=== PATIENT | male | born 1980 | race Caucasian/White ===

== ENCOUNTER 2017-06-16 08:48 | Day surgery (SDC) | payer MEDICARE ==
--- NOTE | ~2017-06-16 | OP ---
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 PROCEDURE: 1. Formalization of amputation at the DIP joint of the left hand long finger. 2. Debridement and closure of left hand fifth finger. SURGEON: Jhony Mitchell MD ANESTHESIA: General. INTRAOPERATIVE COMPLICATIONS: None. SUMMARY OF PATHOLOGIC FINDINGS: As noted above, the patient sustained substantial trauma requiring the above surgery. OPERATIVE SUMMARY IN DETAIL: After obtaining the appropriate preoperative orthopedic surgery consent as well as anesthetic consultation, evaluation and clearance, the patient was brought to the operating room and placed on the operating table in supine position. After general laryngeal mask airway was administered, tourniquet was placed about the proximal aspect of the left upper extremity. Left upper extremity was then prepped and draped in routine sterile fashion. The arm was elevated and exsanguinated, tourniquet was inflated to 250 mmHg. Copious irrigation was then followed by removal of the debris of the long finger and slightly trimming back the distal portion of the phalanx creating a viable usable flap that was then turned upward. The nail bed was ablated and the very distal most aspect of the DIP joint was maintained and simple 4-0 Prolene closure was then utilized for formalization of the amputation. Fifth finger required simple superficial debridement with simple 4-0 Prolene closure. Having completed this, sterile dressings were applied. Tourniquet was deflated. The patient was awakened, taken to recovery room in stable condition. All final needle and sponge counts were correct. TRANSINT:[id number] Voice Confirmation ID: [id number] DOCUMENT ID: [id number] PAULA GRIFFIN, JHONY HUITRON at 1225 CC: [id number] DICTATION DATE: 07/20/17 0947 JOURNEYMAN MECHANIC: 07/20/17 1114 [facility] [place] 06/16/17 [place] [address]
[2017-06-16 11:13] LABS: BASOPHILS 0.3 % (0-2); EOSINOPHILS 2.6 % (0-7); HEMATOCRIT 39.9 % (42.0-54.0); HEMOGLOBIN 13.5 g/dL (13.5-17.5); IMMATURE GRANULOCYTES 0.3 % (0-5); MCH 29.5 pg (26.0-34.0); MCHC 33.8 g/dL (31.0-37.0); MCV 87.3 fL (80.0-100.0); MEAN PLATELET VOLUME 10.4 fL (7.4-10.4); MONOCYTES 8.3 % (2-11); NEUTROPHILS 57.5 % (40-80); PLATELET COUNT 216 10x3/uL (130-400); RBC 4.57 10x6/uL (4.20-6.10); RDW 13.3 % (11.5-14.5); WBC 7.4 10x3/uL (4.8-10.8)
[2017-06-16 11:17] LABS: APTT 31.1 SECONDS (22.8-39.4); INR 0.97 (0.85-1.17); PROTIME 12.5 SECONDS (11.6-15.0)
[2017-06-16 11:21] LABS: ALBUMIN 4.2 g/dL (3.4-5.0); ALKALINE PHOSPHATASE 66 U/L (46-116); ALT (SGPT) 23 U/L (10-68); BILIRUBIN - TOTAL 0.37 mg/dL (0.2-1.3); CALC OSMOLALITY 277 mosm/kg (275-300); CALCIUM 8.7 mg/dL (8.5-10.1); CARBON DIOXIDE 30.3 mmol/L (21.0-32.0); CHLORIDE - SERUM 101 mmol/L (98-107); CREATININE - SERUM 0.8 mg/dL (0.6-1.3); GLUCOSE 100 mg/dL (74-106); POTASSIUM - SERUM 3.5 mmol/L (3.5-5.1); SODIUM 139 mmol/L (136-145); UREA NITROGEN 13 mg/dL (7-18); eGFR NON AFRICAN AMERICAN > 90 mL/min (90-120)
[2017-06-16] MEDS ORDERED: HYDROCODONE-APA1 TAB PO (13:03)
[2017-06-16] MEDS ORDERED: BACTRIM DS TABL1 TAB PO (13:03)
== END 2017-06-16 15:10 | disposition home or self-care (01) ==
LOC: D.OPS 08:48 → D.ER 08:48 → EDSTATUS 11:00 → D.OPS 15:10
PROVIDERS: Emergency Medicine
DX: S68.125A Partial traumatic metacarpophalangeal amputation of left ring finger, initial encounter (principal); S61.217A Laceration without foreign body of left little finger without damage to nail, initial encounter; W31.89XA Contact with other specified machinery, initial encounter; I10 Essential (primary) hypertension; Z01.812 Encounter for preprocedural laboratory examination

== ENCOUNTER 2017-10-11 08:45 | Emergency (ER) | payer MEDICARE ==
[~2017-10-11] VITALS: Ht 180.3 cm; Wt 84.1 kg
[~2017-10-11 08:45] MED LIST: BACTRIM DS TABL1 TAB PO; HYDROCODONE-APA1 TAB PO
[2017-10-11 08:50] VITALS: Ht 180.3 cm; Wt 84.1 kg
[2017-10-11] MEDS ORDERED: BACTRIM DS TABL1 TAB PO (09:22)
[2017-10-11 09:34] VITALS: BP 146/90
[2017-10-15 04:25] VITALS: Ht 180.3 cm; Wt 84.1 kg
== END 2017-10-11 09:37 | disposition home or self-care (01) ==
LOC: D.ER 08:45
DX: L03.113 Cellulitis of right upper limb (principal); F17.200 Nicotine dependence, unspecified, uncomplicated

== ENCOUNTER 2017-10-15 00:56 | Inpatient (IN) | payer MEDICARE ==
[~2017-10-15] VITALS: Ht 180.3 cm; Wt 83.3 kg
[2017-10-15] VITALS (7 sets, daily range): BP systolic 151–197; BP diastolic 92–134; Ht 180.3 cm; Wt 83.3 kg
--- NOTE | ~2017-10-15 | MORECARE ---
CASE MANAGEMENT DISCHARGE SUMMARY PATIENT: LEONARDA WELLS UNIT: [id number] ADM DATE: 10/15/17 AGE: 37 : [birth year] SEX: M ROOM/BED: D.2132 AUTHOR: MARLENA, ALIGNMENT SPECIALIST PHYSICIAN: REFERRING PHYSICIAN: TOMY LESLIE MD DATE OF SERVICE: 10/15/17 Discharge Plan Patient Name: LEONARDA WELLS Facility: [facility]:[place] : 1980 Planned Disposition: Home Anticipated Discharge Date: 10/18/17 Discharge Date: Expected LOS: 3 Initial Reviewer: [email or web address] Initial Review Date: 10/18/2017 Generated: 10/18/17 6:14 pm Comments DCP- Discharge Planning Updated by [email or web address]: Omar Vasquez on 10/18/17 4:[address] Patient Name: LEONARDA WELLS Admission Status: ER Accout number: [id number] Admission Date: 10-15-2017 : 1980 Admission Diagnosis:CELLULITIS OF RIGHT UPPER LIMB Attending: TOMY LESLIE Current LOS: 3 Anticipated DC Date: 10-18-2017 Planned Disposition: Home Primary Insurance: [facility] [employer] Discharge Planning Comments: CM RECEIVED DISCHARGE ORDER, MET WITH PT IN ROOM TO DISCUSS DISCHARGE PLANNING AND NEEDS. PT REPORTS LIVING AT HOME INDEPENDENTLY WITH HIS SISTER. PT HAS NO MEDICAL EQUIPMENT AND NO OUTSIDE SERVICES ASSISTING IN THE HOME. CM DISCUSSED AVAILABILITY OF HOME HEALTH, REHAB SERVICES AND MEDICAL EQUIPMENT. PT DENIES DISCHARGE NEEDS, REPORTS HIS SISTER WILL PICK HIM UP FOR DISCHARGE HOME. IMPORTANT MESSAGE FROM MEDICARE PROVIDED AND EXPLAINED. Cager Operator: Omar Vasquez DCPIA - Discharge Planning Initial Assessment Updated by [email or web address]: Omar Vasquez on 10/18/17 5:08 pm * Is the patient Alert and Oriented? Yes * How many steps to enterexit or inside your home? * PCP DR. VEGA * Pharmacy [address] * Preadmission Environment Home with Family * ADLs Independent * Equipment None * Other Equipment NO MEDICAL EQUIPMENT PROVIDER PREFERENCE * List name and contact numbers for known caregivers / representatives who currently or will assist patient after discharge: BALDOMERO CALLAHAN, SISTER, * Verbal permission to speak to the caregivers and representatives has been obtained from the patient. N/A * Community resources currently utilized None * Please name any agencies selected above. NONE * Additional services required to return to the preadmission environment? No * Can the patient safely return to the preadmission environment? Yes * Has this patient been hospitalized within the prior 30 days at any hospital? No Coverage Notice Reviewer: [id number] - Omar Vasquez Notice Issued Date-Time: 10/18/2017 12:25 Notice Type: IM Discharge Notice Notice Delivered To: Patient Relationship to Patient: Fisher Troll Line Name: Delivery Method: HAND - Hand Delivered Nicole Days: Prior Verbal Notification: Recipient Understood Notice: Yes Recipient Signature: Yes Med Rec Note Co-signed by Attending: Coverage Notice Comment: Patient Name: LEONARDA WELLS Page [id number] All edits/amendments must be made on the electronic document DICTATION DATE: 10/18/171713 GLASS BULB SILVERER: 10/18/171713 RPT#: [id number] DC DATE: STATUS: ADM IN [facility] [address] [place] [address] END OF REPORT
--- NOTE | ~2017-10-15 | OP ---
PATIENT NAME: LEONARDA CARREON MEDICAL RECORD: [id number] :[birth year] LOCATION:D. D.2132 ADMISSION DATE:10/15/17 SURGEON: MIRTA SCANLON, DATE OF OPERATION: 10/15/2017 PROCEDURE PERFORMED: Right hand incision and debridement. PREOPERATIVE DIAGNOSES: Right hand abscess and compartment syndrome. POSTOPERATIVE DIAGNOSES: Right hand abscess and compartment syndrome. 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 He was put on oral antibiotics due to the redness and think it may have been a cellulitis. He then returned today with it worsening and more severe and even had pain with any movement of his thumb. He has been admitted and had an MRI done of his right hand with and without contrast, which showed a 2.9 cm in diameter collection of what appeared to be fluid or purulence in the thenar eminence of his hand just distal to his first metacarpal, mostly on the palmar surface but did extend dorsally. His hand was on exam extremely swollen. He did have pain out of proportion with passive stretch of his thumb. He had decreased sensation in his thumb and index finger. Upon these findings clinically, he was diagnosed with compartment syndrome and taken back to the operating room. He was informed of the risks and benefits of procedure including damage to nerves and vessels and may lose function of the hand due to that, informed of those risks and need for further surgery, he voiced understanding and consented to the procedure. DESCRIPTION OF PROCEDURE: The patient was taken to the operative suite, laid in supine position, given general anesthetic. LMA was placed. The right upper extremity was prepped and draped in sterile fashion. Once that was done, a timeout was performed, everyone was the correct side, site, and patient. The patient then was receiving antibiotics on the floor, vancomycin and clindamycin. After this was done, an incision was marked out in the crease of the thenar eminence on the palmar surface, which seemed to be the largest collection of the MRI of the fluid. As soon as incision was made, a large amount of purulent fluid came out of the wound. This was then cultured and a freer was used to free up under the skin at that location ensuring there were no pockets of fluid of left in the distal part of the thenar eminence. Incisions were then made on the dorsum of the hand in order to release all the compartments of any osseous in between the second and third and fourth and fifth metacarpals on the dorsum of the hand. A freer was then used to release these compartments also and then the thenar at the more proximal part at the base of the thumb, there was an incision made there as well to release what seemed to be a tight area and a freer was used there as well under the skin to break up any what could have been loculations. After that was done, all the wounds were irrigated thoroughly and loosely closed with 4-0 Monocryl with a simple interrupted pattern and then Adaptic, 4 x 4's, Kerlix were wrapped on the hand and a 4-inch Jayden wrap was used to wrap the hand up. Blood loss approximately 50 mL. OPERATIVE REPORT [id number] LEONARDA CARREON COMPLICATIONS: None. TRANSINT:[id number] Voice Confirmation ID: [id number] DOCUMENT ID: [id number] MIRTA SCANLON DO at 0728 CC: [id number] DICTATION DATE: 10/15/172211 BOAT PULLER: 10/16/17 0148 [facility] [place] [id number] [place] [address]
[2017-10-15 01:35] LABS: BASOPHILS 0.1 % (0-2); EOSINOPHILS 2.5 % (0-7); HEMATOCRIT 42.1 % (42.0-54.0); HEMOGLOBIN 13.8 g/dL (13.5-17.5); IMMATURE GRANULOCYTES 0.1 % (0-5); LYMPHOCYTES 26.1 % (15-50); MCH 28.7 pg (26.0-34.0); MCHC 32.8 g/dL (31.0-37.0); MCV 87.5 fL (80.0-100.0); MEAN PLATELET VOLUME 10.7 fL (7.4-10.4); MONOCYTES 10.2 % (2-11); PLATELET COUNT 231 10x3/uL (130-400); RBC 4.81 10x6/uL (4.20-6.10); RDW 14.9 % (11.5-14.5); WBC 13.7 10x3/uL (4.8-10.8)
[2017-10-15 01:48] LABS: ALBUMIN 3.7 g/dL (3.4-5.0); ALKALINE PHOSPHATASE 82 U/L (46-116); ALT (SGPT) 21 U/L (10-68); BILIRUBIN - TOTAL 0.13 mg/dL (0.2-1.3); CALC OSMOLALITY 278 mosm/kg (275-300); CALCIUM 9.3 mg/dL (8.5-10.1); CARBON DIOXIDE 33.3 mmol/L (21.0-32.0); CHLORIDE - SERUM 102 mmol/L (98-107); CREATININE - SERUM 0.9 mg/dL (0.6-1.3); GLUCOSE 92 mg/dL (74-106); POTASSIUM - SERUM 4.5 mmol/L (3.5-5.1); PROTEIN - SERUM 7.9 g/dL (6.4-8.2); SODIUM 139 mmol/L (136-145); UREA NITROGEN 16 mg/dL (7-18); eGFR NON AFRICAN AMERICAN > 90 mL/min (90-120)
[2017-10-16] VITALS: BP 149/94
[2017-10-16 04:00] VITALS: BP 172/96
[2017-10-16 05:28] LABS: BASOPHILS 0.1 % (0-2); EOSINOPHILS 0.5 % (0-7); IMMATURE GRANULOCYTES 0.2 % (0-5); LYMPHOCYTES 8.9 % (15-50); MCH 28.8 pg (26.0-34.0); MCHC 33.3 g/dL (31.0-37.0); MCV 86.5 fL (80.0-100.0); MEAN PLATELET VOLUME 10.8 fL (7.4-10.4); MONOCYTES 11.2 % (2-11); NEUTROPHILS 79.1 % (40-80); PLATELET COUNT 199 10x3/uL (130-400); RBC 4.16 10x6/uL (4.20-6.10); RDW 14.9 % (11.5-14.5)
[2017-10-16 05:42] LABS: ALBUMIN 3.3 g/dL (3.4-5.0); ALKALINE PHOSPHATASE 85 U/L (46-116); ALT (SGPT) 33 U/L (10-68); BILIRUBIN - TOTAL 0.41 mg/dL (0.2-1.3); CALC OSMOLALITY 274 mosm/kg (275-300); CALCIUM 8.7 mg/dL (8.5-10.1); CARBON DIOXIDE 30.8 mmol/L (21.0-32.0); CHLORIDE - SERUM 100 mmol/L (98-107); CREATININE - SERUM 0.7 mg/dL (0.6-1.3); GLUCOSE 142 mg/dL (74-106); POTASSIUM - SERUM 3.8 mmol/L (3.5-5.1); PROTEIN - SERUM 7.3 g/dL (6.4-8.2); SODIUM 137 mmol/L (136-145); UREA NITROGEN 9 mg/dL (7-18); eGFR NON AFRICAN AMERICAN > 90 mL/min (90-120)
[2017-10-16 08:55] VITALS: BP 166/98
[2017-10-16 12:26] VITALS: BP 141/89
[2017-10-16 13:50] LABS: % SATURATION 5 % (15-55); IRON 17 ug/dl (35-150); TOTAL IRON BIND CAPACITY 291 ug/dl (260-445); UNSAT IRON BIND CAPACITY 274 ug/dl (150-375)
[2017-10-16 15:27] LABS: UDS - AMPHET NEGATIVE QUAL (NEGATIVE); UDS - BARB NEGATIVE QUAL (NEGATIVE); UDS - BENZO POSITIVE QUAL (NEGATIVE); UDS - COCAINE NEGATIVE QUAL (NEGATIVE); UDS - OPIATE POSITIVE QUAL (NEGATIVE); UDS - PCP NEGATIVE QUAL (NEGATIVE); UDS - THC POSITIVE QUAL (NEGATIVE)
[2017-10-16 17:36] VITALS: BP 153/105
[2017-10-16 20:00] VITALS: BP 175/105
[2017-10-17] VITALS: BP 155/94
[2017-10-17 04:00] VITALS: BP 135/80
[2017-10-17 05:53] LABS: BASOPHILS 0.2 % (0-2); EOSINOPHILS 3.9 % (0-7); HEMATOCRIT 36.5 % (42.0-54.0); HEMOGLOBIN 12.3 g/dL (13.5-17.5); IMMATURE GRANULOCYTES 0.2 % (0-5); LYMPHOCYTES 34.8 % (15-50); MCH 29.2 pg (26.0-34.0); MCHC 33.7 g/dL (31.0-37.0); MCV 86.7 fL (80.0-100.0); MEAN PLATELET VOLUME 10.2 fL (7.4-10.4); MONOCYTES 13.2 % (2-11); NEUTROPHILS 47.7 % (40-80); PLATELET COUNT 222 10x3/uL (130-400); RBC 4.21 10x6/uL (4.20-6.10); RDW 15.3 % (11.5-14.5)
[2017-10-17 06:10] LABS: WBC 8.5 10x3/uL (4.8-10.8)
[2017-10-17 06:29] LABS: ALBUMIN 3.2 g/dL (3.4-5.0); ALKALINE PHOSPHATASE 81 U/L (46-116); ALT (SGPT) 31 U/L (10-68); BILIRUBIN - TOTAL 0.24 mg/dL (0.2-1.3); CALCIUM 8.7 mg/dL (8.5-10.1); CARBON DIOXIDE 29.8 mmol/L (21.0-32.0); CHLORIDE - SERUM 103 mmol/L (98-107); CREATININE - SERUM 0.8 mg/dL (0.6-1.3); POTASSIUM - SERUM 4.3 mmol/L (3.5-5.1); PROTEIN - SERUM 7.4 g/dL (6.4-8.2); SODIUM 140 mmol/L (136-145); eGFR NON AFRICAN AMERICAN > 90 mL/min (90-120)
[2017-10-17 06:33] LABS: CALC OSMOLALITY 277 mosm/kg (275-300); GLUCOSE 88 mg/dL (74-106); UREA NITROGEN 12 mg/dL (7-18)
[2017-10-17 08:19] LABS: FOLATE (FOLIC ACID) - SERUM 15.1 ng/mL (>3.0)
[2017-10-17 08:29] VITALS: BP 162/86
[2017-10-17 12:04] VITALS: BP 161/90
[2017-10-17 15:30] VITALS: BP 130/77
[2017-10-17 20:00] VITALS: BP 140/74
[2017-10-18] VITALS: BP 130/75
[2017-10-18 04:00] VITALS: BP 122/79
[2017-10-18 05:39] LABS: BASOPHILS 0.3 % (0-2); EOSINOPHILS 7.1 % (0-7); IMMATURE GRANULOCYTES 0.3 % (0-5); LYMPHOCYTES 36.2 % (15-50); MCH 28.4 pg (26.0-34.0); MCHC 32.4 g/dL (31.0-37.0); MCV 87.9 fL (80.0-100.0); MEAN PLATELET VOLUME 10.1 fL (7.4-10.4); MONOCYTES 13.7 % (2-11); NEUTROPHILS 42.4 % (40-80); PLATELET COUNT 213 10x3/uL (130-400); RBC 3.87 10x6/uL (4.20-6.10); RDW 15.1 % (11.5-14.5); WBC 6.9 10x3/uL (4.8-10.8)
[2017-10-18 05:59] LABS: ALBUMIN 2.9 g/dL (3.4-5.0); ALKALINE PHOSPHATASE 67 U/L (46-116); BILIRUBIN - TOTAL 0.18 mg/dL (0.2-1.3); CALCIUM 8.8 mg/dL (8.5-10.1); CARBON DIOXIDE 31.4 mmol/L (21.0-32.0); CHLORIDE - SERUM 103 mmol/L (98-107); GLUCOSE 89 mg/dL (74-106); POTASSIUM - SERUM 4.3 mmol/L (3.5-5.1); PROTEIN - SERUM 6.7 g/dL (6.4-8.2); SODIUM 140 mmol/L (136-145); eGFR NON AFRICAN AMERICAN 89 mL/min (90-120)
[2017-10-18 06:02] LABS: ALT (SGPT) 23 U/L (10-68); CALC OSMOLALITY 279 mosm/kg (275-300); UREA NITROGEN 19 mg/dL (7-18)
[2017-10-18 08:20] VITALS: BP 125/84
[2017-10-18 11:15] VITALS: BP 129/83
[2017-10-18 14:50] VITALS: BP 159/82
[2017-10-18] MEDS ORDERED: KEFLEX500 MG PO (16:22)
[2017-10-18] MEDS ORDERED: LISINOPRIL10 MG PO (16:23)
[2017-10-18] MEDS ORDERED: NICODERM C1 PATCH .1 TRANSDERM (16:23)
[2017-10-18] MEDS ORDERED: PROTONIX40 MG PO (16:23)
== END 2017-10-18 18:14 | disposition home or self-care (01) | DRG 580 ==
LOC: D.ER 00:56 → D.M2 03:29
PROVIDERS: Family Medicine; Internal Medicine Nephrology; Orthopaedic Surgery
PROC: 0KNC0ZZ Release Right Hand Muscle, Open Approach (ICD-10-PCS; 2017-10-15)
PROC: 0KNC0ZZ Release Right Hand Muscle, Open Approach (ICD-10-PCS; 2017-10-15)
PROC: 0KNC0ZZ Release Right Hand Muscle, Open Approach (ICD-10-PCS; 2017-10-15)
PROC: 0KNC0ZZ Release Right Hand Muscle, Open Approach (ICD-10-PCS; principal; 2017-10-15 20:00)
DX: L03.113 Cellulitis of right upper limb (principal); T79.A11A Traumatic compartment syndrome of right upper extremity, initial encounter; F17.213 Nicotine dependence, cigarettes, with withdrawal; Z91.14 Patient's other noncompliance with medication regimen; I10 Essential (primary) hypertension; B95.7 Other staphylococcus as the cause of diseases classified elsewhere